=== PATIENT | male | born 1970 | race American Indian/Alaskan Native ===

== ENCOUNTER 2016-08-17 09:43 | Emergency (ER) | payer SELFPAY ==
--- NOTE | 2016-08-17 11:43 | Emergency Department Report ---
Chief Complaint: Abdominal Pain Stated Complaint: ABD PAIN/BACK PAIN Time Seen by Provider: 08/17/16 11:38 - HPI History of Present Illness: Patient reports intermittent abdominal pain that started two years ago. Also, c/ o back pain for three days and intermittent vomiting depending on oral intake - ROS Review of Systems: all other systems are unremarkable except for documentation in HPI - Exam Vital Signs: Vital Signs 08/17/16 11:13 Temperature 98.3 F Pulse Rate 66 Respiratory 22 Rate Blood Pressure 175/100 O2 Sat by Pulse 98 Oximetry Physical Exam: Gen: well developed and nourished, NAD Abd: soft, nondistended, bowel sounds present, epigastric, RUQ and LUQ tenderness to palpation, no rebound, guarding or rigid MSE screening note: Focused history and physical exam performed. Due to findings the following was ordered: laboratory studies ordered ED Disposition for MSE Condition: Stable
[2016-08-17 12:22] LABS: Basophils % (Auto) 1.1 % (0.0-1.8); Eosinophils % (Auto) 1.3 % (0.0-4.3); Hemoglobin 14.7 gm/dl (11.8-15.2); Mean Corpuscular HGB Conc 33 % (32-34); Mean Corpuscular Hemoglobin 31 pg (28-32); Mean Corpuscular Volume 93 fl (84-94); Platelet Count 192 K/mm3 (140-440); Red Blood Count 4.76 M/mm3 (3.65-5.03); Red Cell Distribution Width 13.2 % (13.2-15.2); White Blood Count 5.4 K/mm3 (4.5-11.0)
[2016-08-17 12:35] LABS: Alanine Aminotransferase 106 units/L (7-56); Albumin 4.1 g/dL (3.9-5); Albumin/Globulin Ratio 1.5 %; Alkaline Phosphatase 64 units/L (35-129); BUN/Creatinine Ratio 12.72; Bilirubin,Total 0.2 mg/dL (0.1-1.2); Blood Urea Nitrogen 14 mg/dL (9-20); Calcium 9.1 mg/dL (8.4-10.2); Carbon Dioxide 29 mmol/L (22-30); Chloride 100.7 mmol/L (98-107); Glucose 110 mg/dL (75-100); Potassium 4.3 mmol/L (3.6-5.0); Sodium 142 mmol/L (137-145); Total Protein 6.9 g/dL (6.3-8.2)
[2016-08-17 12:44] LABS: Anion Gap 17 mmol/L
[2016-08-17 13:26] LABS: Bacteria,Urine 1+ /HPF (Negative); Bilirubin,Urine NEG (Negative); Blood,Urine MOD (Negative); Ketones,Urine NEG (Negative); Leukocyte Esterase,Urine NEG (Negative); Mucus,Urine FEW /HPF; Nitrite,Urine NEG (Negative); Urobilinogen,Urine < 2.0 mg/dL (<2.0)
[2016-08-17] MEDS ORDERED: PEPCID ONE (20:07)
[2016-08-17] MEDS ORDERED: ZOFRAN ODT ONE (20:07)
[2016-08-17 20:09] VITALS: BP 185/106
[2016-08-17] MEDS ORDERED: PEPCID PO ONE (20:09)
[2016-08-17] MEDS ORDERED: ZOFRAN ODT PO ONE (20:09)
--- NOTE | 2016-08-18 23:33 | ED Elopement Review ---
ED Pt Elopement review - Results review Lab results: Laboratory Tests 08/17/16 08/17/16 08/17/16 12:09 12:09 12:09 WBC 5.4 RBC 4.76 Hgb 14.7 Hct 44.0 MCV 93 MCH 31 MCHC 33 RDW 13.2 Plt Count 192 Lymph % (Auto) 28.6 [place] % (Auto) 8.9 H Eos % (Auto) 1.3 Baso % (Auto) 1.1 Lymph # 1.5 [place] # 0.5 Eos # 0.1 Baso # 0.1 Seg Neutrophils % 60.1 Seg Neutrophils # 3.2 Sodium 142 Potassium 4.3 Chloride 100.7 Carbon Dioxide 29 Anion Gap 17 BUN 14 Creatinine 1.1 Estimated GFR > 60 BUN/Creatinine Ratio 12.72 Glucose 110 H Calcium 9.1 Total Bilirubin 0.2 AST 316 H ALT 106 H Alkaline Phosphatase 64 Total Protein 6.9 Albumin 4.1 Albumin/Globulin Ratio 1.5 Lipase 33 Urine Color Urine Turbidity Urine pH Ur Specific [place] Urine Protein Urine Glucose (UA) Urine Ketones Urine Blood Urine Nitrite Urine Bilirubin Urine Urobilinogen Ur Leukocyte Esterase Urine WBC (Auto) Urine RBC (Auto) Urine Bacteria (Auto) Urine Mucus 08/17/16 12:49 WBC RBC Hgb Hct MCV MCH MCHC RDW Plt Count Lymph % (Auto) [place] % (Auto) Eos % (Auto) Baso % (Auto) Lymph # [place] # Eos # Baso # Seg Neutrophils % Seg Neutrophils # Sodium Potassium Chloride Carbon Dioxide Anion Gap BUN Creatinine Estimated GFR BUN/Creatinine Ratio Glucose Calcium Total Bilirubin AST ALT Alkaline Phosphatase Total Protein Albumin Albumin/Globulin Ratio Lipase Urine Color Yellow Urine Turbidity Clear Urine pH 5.0 Ur Specific [place] 1.024 Urine Protein 30 mg/dl Urine Glucose (UA) Neg Urine Ketones Neg Urine Blood Mod Urine Nitrite Neg Urine Bilirubin Neg Urine Urobilinogen < 2.0 Ur Leukocyte Esterase Neg Urine WBC (Auto) 1.0 Urine RBC (Auto) 15.0 Urine Bacteria (Auto) 1+ Urine Mucus Few - Call Back decision Pt Call Back Decision: Pt to F/U with PMD (has hepatitis need to follow up)
== END 2016-08-17 21:05 | disposition left against medical advice (07) ==
LOC: ED 09:43
DX: R10.9 Unspecified abdominal pain (principal); M54.9 Dorsalgia, unspecified; R11.10 Vomiting, unspecified; Z53.21 Procedure and treatment not carried out due to patient leaving prior to being seen by health care provider
CPT/HCPCS: 36415; 80053; 81001; 83690; 85025; Q0162

== ENCOUNTER 2017-02-15 07:44 | Outpatient (CLI) | payer OTHER ==
[2017-02-15] MEDS ORDERED: PROVENTIL IH ONE (07:58)
== END 2017-02-15 07:45 | disposition home or self-care (01) ==
LOC: PF 07:44
PROVIDERS: ATTEND Internal Medicine
DX: I11.0 Hypertensive heart disease with heart failure (principal); I50.9 Heart failure, unspecified; E11.9 Type 2 diabetes mellitus without complications; F17.200 Nicotine dependence, unspecified, uncomplicated
CPT/HCPCS: 94060; 94640